=== PATIENT | male | born 1965 | race Caucasian/White ===

== ENCOUNTER 2023-04-28 21:23 | Outpatient (REF) | payer OTHER, SELFPAY ==
[2023-04-28 23:15] LABS: Creatine Kinase* 123 U/L (54-186); Creatinine* 0.8 mg/dL (0.5-1.5); Estimated Glomerular Filt Rate 104 ml/min
== END 2023-04-28 21:24 | disposition home or self-care (01) ==
LOC: LAB 21:23
DX: Z79.899 Other long term (current) drug therapy (principal)
CPT/HCPCS: 36415; 82550; 82565